=== PATIENT | female | born 1965 | race Caucasian/White ===

== ENCOUNTER 2023-03-04 11:08 | Emergency (ER) | payer OTHER ==
[2023-03-04 11:15] VITALS: BP 143/88; PULSE 81; RESP 18; TEMP 98.4; BMI 26.6
[2023-03-04] MEDS ORDERED: IBUPROFEN 600 MG TABLET (FP) PO ONE ×2 (13:44)
== END 2023-03-04 13:54 | disposition home or self-care (01) ==
LOC: JER 11:08 → JERFT 11:08
DX: H92.02 Otalgia, left ear (principal); R51.9 Headache, unspecified; H60.92 Unspecified otitis externa, left ear
CPT/HCPCS: 99283-25